=== PATIENT | female | born 1960 | race Caucasian/White ===

== ENCOUNTER 2017-03-14 09:48 | Day surgery (SDC) | payer OTHER ==
[~2017-03-14] VITALS: Ht 154.9 cm; Wt 75.5 kg
[~2017-03-14 09:48] MED LIST: ASPI81 PO; CARV12 PO; CHOL200012 PO; FURO80 PO; FentaNYL CITRATE-PF 100 MCG/2 ML VIAL IVP ONE; HYDR25 PO; INSLAN SQ; LOSA50TA37 PO; MIDAZOLAM HCL 2 MG/2 ML VIAL IVP ONE; PHOSLOC PO
[2017-03-14] MEDS ORDERED: SODIUM CHLORIDE 0.9% 500 ML IV ONE ×2 (10:00→10:57)
[2017-03-14] MEDS ORDERED: CYCLOPENTOLATE HCL 2% 2 ML OPHTHALMIC SOLUTION ONE (10:23)
[2017-03-14] MEDS ORDERED: MOXIFLOXACIN HCL 0.5% 3 ML OPHTHALMIC SOLUTION ONE (10:24)
[2017-03-14] MEDS ORDERED: PHENYLEPHRINE HCL 2.5% 2 ML OPHTHALMIC SOLUTION ONE (10:24)
[2017-03-14] MEDS ORDERED: TETRACAINE HCL 0.5% 2 ML OPHTHALMIC SOLUTION ONE (10:24)
[2017-03-14] MEDS ORDERED: DICLOFENAC SODIUM 0.1% 2.5 ML OPHTHALMIC SOLUTION ONE (10:24)
[2017-03-14] MEDS ORDERED: RINGERS SOLUTION,LACTATED 0 ML IV ONE (10:27)
[2017-03-14] MEDS ORDERED: TETRACAINE HCL 0.5% 2 ML OPHTHALMIC SOLUTION OS ONE (10:45)
[2017-03-14] MEDS ORDERED: AcetaZOLAMIDE 250 MG TABLET PO ONE (10:45)
[2017-03-14] MEDS ORDERED: ACETAMINOPHEN 325 MG TABLET PO PRN (10:45)
[2017-03-14] MEDS: PHENYLEPHRINE HCL 2.5% 2 ML OPHTHALMIC SOLUTION OS SCH ×3 (11:12→11:24)
[2017-03-14] MEDS: CYCLOPENTOLATE HCL 2% 2 ML OPHTHALMIC SOLUTION OS SCH ×3 (11:12→11:24)
[2017-03-14] MEDS: DICLOFENAC SODIUM 0.1% 2.5 ML OPHTHALMIC SOLUTION OS SCH ×3 (11:13→11:34)
[2017-03-14] MEDS: MOXIFLOXACIN HCL 0.5% 3 ML OPHTHALMIC SOLUTION OS SCH ×3 (11:13→11:33)
[2017-03-14 11:17] LABS: GLUCOSE,POINT OF CARE 170 MG/DL (70-110)
[2017-03-14] MEDS ORDERED: AcetaZOLAMIDE 250 MG TABLET ONE (12:48)
== END 2017-03-14 13:20 | disposition home or self-care (01) ==
LOC: SURGERY 09:48
PROVIDERS: ATTEND Ophthalmology
DX: E11.36 Type 2 diabetes mellitus with diabetic cataract (principal); H25.22 Age-related cataract, morgagnian type, left eye; E11.22 Type 2 diabetes mellitus with diabetic chronic kidney disease; I13.10 Hypertensive heart and chronic kidney disease without heart failure, with stage 1 through stage 4 chronic kidney disease, or unspecified chronic kidney disease; N18.3 Chronic kidney disease, stage 3 (moderate); I25.10 Atherosclerotic heart disease of native coronary artery without angina pectoris; M19.90 Unspecified osteoarthritis, unspecified site; Z79.4 Long term (current) use of insulin; Z98.890 Other specified postprocedural states; Z90.722 Acquired absence of ovaries, bilateral
CPT/HCPCS: 66982; 82962; 93005; C1780; J2250; J3010; J7040; J7120

== ENCOUNTER 2017-11-08 17:52 | Emergency (ER) | payer OTHER ==
[~2017-11-08] VITALS: Ht 162.6 cm; Wt 82.7 kg
[~2017-11-08 17:52] MED LIST changes: -FentaNYL CITRATE-PF 100 MCG/2 ML VIAL IVP ONE; -HYDR25 PO; +HYDR25TA84 PO; -MIDAZOLAM HCL 2 MG/2 ML VIAL IVP ONE
[2017-11-08 18:47] VITALS: BP 163/78
[2017-11-08 18:57] LABS: GLUCOSE,POINT OF CARE 236 MG/DL (70-110)
[2017-11-08] MEDS ORDERED: FERR-89 PO (18:57)
[2017-11-08] MEDS ORDERED: INSU100C14 SQ (18:57)
[2017-11-08 19:50] LABS: INFLUENZA TYPE A NEGATIVE FOR TYPE A (NEGATIVE); INFLUENZA TYPE B NEGATIVE FOR TYPE B (NEGATIVE)
== END 2017-11-08 22:30 | disposition left against medical advice (07) ==
LOC: EMS 17:53
DX: J02.9 Acute pharyngitis, unspecified (principal); Z53.21 Procedure and treatment not carried out due to patient leaving prior to being seen by health care provider
CPT/HCPCS: 82962; 87804